=== PATIENT | female | born 1975 | race Hispanic/Latino ===

== ENCOUNTER 2016-11-27 12:54 | Emergency (ER) | payer OTHER ==
[2016-11-27] MEDS ORDERED: Lorazepam 1 MG TAB ONE (13:27)
[2016-11-27 13:43] LABS: #Basophils 0.1 thou/uL (0.0-0.2); #Eosinphils 0.1 thou/uL (0.0-0.7); #Lymphocytes 2.7 thou/uL (1.20-3.40); #Monocytes 0.8 thou/uL (0.11-0.59); #Neutrophils 2.7 thou/uL (1.40-6.50); %Basophils 1.2 % (0.0-1.0); %Eosinophils 1.7 % (0.0-10.0); %Lymphocytes 42.4 % (21.0-51.0); %Monocytes 12.2 % (0.0-10.0); Hematocrit 40.3 % (36.0-47.0); Mean Platelet Volume 8.3 fL (7.4-10.4); Red Blood Cell (RBC) Count 4.27 mill/uL (4.20-5.40); White Blood Cell (WBC) Count 6.4 thou/uL (4.8-10.8)
[2016-11-27 14:04] LABS: ALT (SGPT) 56 U/L (0-55); AST (SGOT) 33 U/L (5-34); Alkaline Phosphatase 83 U/L (40-150); Anion Gap 17 mmol/L (10-20); BUN (Urea Nitrogen) 10 mg/dL (7.0-18.7); Bilirubin, Total 0.6 mg/dL (0.2-1.2); Calc. Creatinine Clearance 0 mL/min (70-130); Calcium 9.1 mg/dL (7.8-10.44); Carbon Dioxide 19 mmol/L (22-29); Chloride 106 mmol/L (98-107); Estimated GFR-MDRD 90; Globulin 4.4 g/dL (2.4-3.5)
[2016-11-27 14:05] LABS: Troponin I Less than 0.010 ng/mL (< 0.028)
--- NOTE | 2016-11-27 14:09 | RAD ---
FRONTAL VIEW CHEST Date: 11/27/16 INDICATION: Anxiety, difficulty breathing. FINDINGS: No evidence of lobar consolidation, effusion, or pneumothorax. Cardiac silhouette is normal size. IMPRESSION: No focal consolidation. POS: [id number]
== END 2016-11-27 14:41 | disposition home or self-care (01) ==
LOC: NAV ERS 12:54
DX: F41.0 Panic disorder [episodic paroxysmal anxiety] (principal); E03.9 Hypothyroidism, unspecified
CPT/HCPCS: 71010; 80053; 81025; 82553; 84484; 85025; 93005

== ENCOUNTER 2022-01-22 08:10 | Outpatient (CLI) | payer OTHER | END 2022-01-22 08:11 | disposition home or self-care (01) | LOC: NAV LAB 08:10 | PROVIDERS: ATTEND Internal Medicine Endocrinology, Diabetes & Metabolism | DX: E03.9 Hypothyroidism, unspecified (principal); D50.9 Iron deficiency anemia, unspecified | CPT/HCPCS: 36415; 83540 ==

== ENCOUNTER 2023-06-13 07:23 | Outpatient (CLI) | payer OTHER ==
[2023-06-13 07:46] LABS: #Basophils 0.1 thou/uL (0.0-0.2); #Eosinphils 0.2 thou/uL (0.0-0.7); #Lymphocytes 2.2 thou/uL (1.20-3.40); #Monocytes 0.6 thou/uL (0.11-0.59); #Neutrophils 2.1 thou/uL (1.40-6.50); %Basophils 1.3 % (0.0-1.0); %Eosinophils 3.2 % (0.0-10.0); %Lymphocytes 43.4 % (21.0-51.0); %Neutrophils 40.2 % (42.0-75.0); Hematocrit 36.3 % (36.0-47.0); Hemoglobin 11.5 g/dL (12.0-16.0); Mean Corpuscular HGB CONC 31.7 g/dL (32.0-36.0); Mean Corpuscular Hemoglobin 29.1 pg (27.0-31.0); Mean Corpuscular Volume 91.7 fl (78.0-98.0); Mean Platelet Volume 8.4 fL (7.4-10.4); Platelet Count 363 10x3/uL (130-400); RBC Distribution Width 14.1 % (11.5-14.5); Red Blood Cell (RBC) Count 3.96 mill/uL (4.20-5.40); White Blood Cell (WBC) Count 5.1 10x3/uL (4.8-10.8)
[2023-06-13 07:56] LABS: ALT (SGPT) 33 U/L (8-55); AST (SGOT) 26 U/L (5-34); Albumin 4.2 g/dL (3.5-5.0); Alkaline Phosphatase 127 U/L (40-110); Anion Gap 13 mmol/L (10-20); BUN (Urea Nitrogen) 10 mg/dL (7.0-18.7); Bilirubin, Total 0.2 mg/dL (0.2-1.2); Calc. Creatinine Clearance 0 mL/min (70-130); Calcium 9.1 mg/dL (7.8-10.44); Carbon Dioxide 25 mmol/L (22-29); Chloride 106 mmol/L (98-107); Estimated GFR 101; Globulin 3.9 g/dL (2.4-3.5); Glucose 99 mg/dL (70-105); Protein, Total 8.1 g/dL (6.0-8.3); Sodium 140 mmol/L (136-145)
[2023-06-13 08:19] LABS: Thyroid Stimulating Hormone 8.5815 uIU/mL (0.35-4.94)
[2023-06-13 17:07] LABS: Iron 21 ug/dL (50-170)
[2023-06-13 17:30] LABS: Free T4 (Free Thyroxine) 0.73 ng/dL (0.70-1.48)
== END 2023-06-13 07:24 | disposition home or self-care (01) ==
LOC: NAV ER/OP 07:23
PROVIDERS: ATTEND Internal Medicine Endocrinology, Diabetes & Metabolism
DX: D64.9 Anemia, unspecified (principal); D50.8 Other iron deficiency anemias; E03.9 Hypothyroidism, unspecified
CPT/HCPCS: 36415; 80053; 82607; 83540; 84439; 84443; 84481; 85025